=== PATIENT | male | born 1995 | race Caucasian/White ===

== ENCOUNTER 2023-12-28 16:42 | Emergency (ER) | payer OTHER, SELFPAY ==
--- NOTE | ~2023-12-28 | CT_ITS ---
EXAMINATION: CT abdomen pelvis wo con DATE: 12/28/2023 17:36 INDICATION: Right-sided abdomen pain TECHNIQUE: Computed tomography (CT) of the abdomen and pelvis was performed without intravenous contr ast. The dose-length product was 210.67 mGy-cm. Automated exposure control and iterative reconstructi on technique were employed. COMPARISON: None. FINDINGS: Lung bases are unremarkable. Heart size normal. No significant pleural or pericardial effus ion. The liver, spleen, pancreas, adrenal glands and kidneys are unremarkable. No hydronephrosis or r enal stone. Gallbladder is present. Nonobstructive bowel pattern. Normal appendix. No abnormal pelvic masses or fluid collections. No significant vascular abnormality. No lymphadenopathy. No evidence fo r hernia. No acute osseous abnormality. IMPRESSION: 1. No acute abdominal abnormality. Reviewed, dictated and finalized at location A.
[2023-12-28 16:52] VITALS: BP 123/88; PULSE 107; RESP 18; TEMP 36.3; O2SAT 100
--- NOTE | 2023-12-28 17:11 | ED.ABDPAIN ---
HPI - Abdominal Pain General Chief Complaint: Abdominal Pain Stated Complaint: right flank pain Time Seen by Provider: 12/28/23 16:56 Source: patient Mode of arrival: ambulatory Limitations: no limitations History of Present Illness HPI narrative: Patient is a 28-year-old male, with Hx of marijuana use, who presents to the ED who presents to the ED with c/o R sided abdomen pain. Patient reports pain began last night and has been fairly constant since then. Pain worse with movement, coughing. Denies radiation of pain to back or groin. He has not tried anything for the pain. He denies any other associated symptoms. Denies nausea, vomiting, diarrhea, constipation, dysuria, hematuria, fevers. Patient has never had pain like this before. Denies previous history of kidney stones. Related Data Allergies Allergy/AdvReac Type Severity Reaction Status Date / Time No Known Allergies Allergy Verified 12/28/23 17:55 Review of Systems Review of Systems: CONSTITUTIONAL: Denies fever, chills, or sweats. GASTROINTESTINAL: See HPI. GENITOURINARY: Denies dysuria or hematuria. MUSCULOSKELETAL: Denies back pain, extremity pain, myalgia. All systems reviewed & are unremarkable except as noted in HPI and below PMFSH Social History Social History (Updated 12/28/23 @ 19:30 by Mary Alvarez PA-C) Substance use: current Substance use type: marijuana Exam Narrative: GENERAL: Well appearing, well-nourished, non-toxic, in no acute distress. HEAD: Normocephalic, atraumatic. ENT: Dental decay. Upper teeth nearly eroded down to gumline. RESPIRATORY: Airway patent, respirations nonlabored. Clear to auscultation bilaterally, no rales, rhonchi, wheezing. CARDIOVASCULAR: Regular rate and rhythm. Radial pulses easily palpable ABDOMINAL: Soft, TTP in RLQ, R mid/lateral abdomen, nondistended. Normoactive BS. +mild CVA tenderness to percussion on R side MUSCULOSKELETAL: Moves all extremities. No gross deformities. No midline thoracic or lumbar spinal tenderness. SKIN: Warm, dry, normal color. NEURO: A&O X3. Speech clear. PSYCHIATRIC: Appropriate mood and affect. Normal interaction. Course Vital Signs Vital signs: Vital Signs Temperature 97.4 F L 12/28/23 16:52 Pulse Rate 107 H 12/28/23 16:52 Respiratory Rate 18 12/28/23 16:52 Blood Pressure 123/88 12/28/23 16:52 Pulse Oximetry 100 12/28/23 16:52 Oxygen Delivery Room Air 12/28/23 16:52 Temperature 97.4 F L 12/28/23 16:52 Pulse Rate 66 12/28/23 17:45 Respiratory Rate 16 12/28/23 17:45 Blood Pressure 116/68 12/28/23 17:45 Pulse Oximetry 99 12/28/23 17:45 Oxygen Delivery Room Air 12/28/23 16:52 MDM - Abdominal Pain MDM Narrative Medical decision making narrative: Patient presented to ED with 1.5 day history of right-sided abdominal pain, worse with movement and coughing, no other associated symptoms. Vital signs are stable upon arrival. Patient afebrile, in no acute distress. Laboratory studies are unremarkable. No leukocytosis or anemia. CMP unremarkable. Stable kidney function. Normal LFTs and lipase. Urinalysis with trace leuk esterase, 6-10 WBC, though squamous cells present. Patient denies any urinary complaints at this time. Denies concern for STDs. Will send for culture. CT scan abdomen pelvis was obtained and unremarkable. Normal appendix. Normal liver and gallbladder. No ureterolithiasis. Patient updated on lab and imaging results. He is feeling better with supportive therapy. Discussed likelihood of muscular pain. Advised to continue Tylenol/ibuprofen as needed for pain, given return precautions. Patient in agreement with plan. Discharged in stable condition. Vital signs stable at time of D/C. Medical Records Attestation: I reviewed the patient's medical records. Lab Data Attestation: I reviewed the patient's lab results. 12/28/23 17:22 12/28/23 17:22 Labs: Lab Results 12/27
[2023-12-28 17:24] LABS: Appearance Urine Clear (Clear); Bacteria Urine Rare /hpf; Bilirubin Urine Negative (Negative); Blood Urine Negative (Negative); Color Urine Yellow (Yellow); Glucose Urine UA Negative (Negative); Ketones Urine Trace mg/dL (Negative); Leukocyte Esterase Ur Trace LEU/UL (Negative); Nitrate Urine Negative (Negative); Non Pathogenic Casts 0-2; Protein Urine Negative (Negative); RBC Urine 0-2 /hpf (0-2); Specific Grav Ur 1.023 (1.001-1.035); Squamous Epithelial Cell Urine Occasional /hpf (Few); pH Urine 6.5 (5.0-9.0)
[2023-12-28 17:26] LABS: Add Urine Microscopic? YES
[2023-12-28 17:29] LABS: Basophils Percent Auto 0.5 % (0.2-1.2); Eosinophils Absolute Auto 0.2 K/mm3 (0-0.3); Immature Granulocyte Absolute 0.02 K/mm3 (0.00-0.031); Immature Granulocyte Percent A 0.3 % (0-0.5); Lymphocytes Absolute Auto 2.36 K/mm3 (0.9-3.2); Lymphocytes Percent Auto 31.1 % (18.3-44.2); Mean Corpuscular HGB Conc 34.1 g/dl (32-36); Mean Corpuscular Hemoglobin 30.3 pg (26-34); Mean Corpuscular Volume 88.9 fl (80-100); Mean Platelet Volume 9.7 fl (7.4-10.4); Monocytes Absolute Auto 0.6 K/mm3 (0.1-0.6); Monocytes Percent Auto 7.8 % (2.6-8.5); Neutrophils Absolute Auto 4.4 K/mm3 (1.3-6.7); Neutrophils Percent Auto 58.3 % (45.5-73.1); Platelet Count Result 238 k/mm3 (150-375); Red Blood Count 4.95 M/mm3 (4.6-6.20); Red Cell Distribution Width 12.4 % (11.5-14.5); White Blood Count 7.6 K/mm3 (4.5-10.0)
[2023-12-28 17:43] LABS: Alanine Aminotransferase 11 U/L (6-50); Albumin Level 4.4 g/dL (3.5-5.1); Alkaline Phosphatase 65 U/L (38-126); Anion Gap 3 mmol/L (8-16); Aspartate Amino Transferase 23 U/L (17-59); Bilirubin,Total 0.7 mg/dL (0.2-1.3); Blood Urea Nitrogen 10 mg/dL (9-20); Calcium 9.3 mg/dL (8.4-10.2); Carbon Dioxide 30 mmol/L (22-30); Chloride 104 mmol/L (98-107); Estimated CRCL calculation 84 ml/min; Estimated Glomerular Filt Rate > 60; Glucose 95 mg/dL (65-110); Lipase 32 U/L (23-300); Potassium 3.9 mmol/L (3.4-5.0); Sodium 137 mmol/L (137-145)
[2023-12-28 17:45] VITALS: BP 116/68; PULSE 66; RESP 16; O2SAT 99
[2023-12-28] MEDS: ACETAMINOPHEN 500 MG TABLET 1000 MG PO (17:55)
[2023-12-28] MEDS: KETOROLAC (*BKC) 60 MG/2 ML VIAL IM (18:24)
[2023-12-28 19:30] VITALS: BP 120/72; PULSE 80; RESP 16; O2SAT 98
== END 2023-12-28 19:30 | disposition home or self-care (01) ==
PROVIDERS: Emergency Provider Physician Assistant
DX: R10.9 Unspecified abdominal pain (principal)
CPT/HCPCS: 36415; 74176; 80053; 83690; 85025; 87086; 87088; 96372; 99284; A9270; J1885

== ENCOUNTER 2024-02-08 18:23 | Emergency (ER) | payer OTHER, SELFPAY ==
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
[2024-02-08 18:25] VITALS: BP 115/74; PULSE 70; RESP 16; TEMP 37.4; O2SAT 99
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
--- NOTE | 2024-02-08 19:13 | PC.NURSE ---
Report from NIKI Aguilar.
--- NOTE | 2024-02-08 19:57 | PC.NURSE ---
In to room to leave lac repair supplies for ERP and admin tylenol. Pt not in room. Assume pt is in restroom. Will come back in 5 min.
--- NOTE | 2024-02-08 20:03 | PC.NURSE ---
Pt still not in room. Will give another 5 min.
[2024-02-08] MEDS: ACETAMINOPHEN 325 MG TABLET 650 MG PO (20:10)
[2024-02-08] MEDS: TETANUS,DIPHTHERIA,AC PERTUSSIS ADULT (0.5 ML) BOOSTRIX IM (20:51)
[2024-02-08] MEDS: LIDOCAINE HCL 1% LOCAL INJ 10 ML VIAL INFILTRATE (20:52)
[2024-02-08 20:55] VITALS: BP 138/74; PULSE 78; RESP 14; O2SAT 99
== END 2024-02-08 20:56 | disposition home or self-care (01) ==
LOC: ANHED 20:43
PROVIDERS: Emergency Provider Student in an Organized Health Care Education/Training Program
DX: S61.412A Laceration without foreign body of left hand, initial encounter (principal); S60.512A Abrasion of left hand, initial encounter; Z23 Encounter for immunization; V23.49XA Other motorcycle driver injured in collision with car, pick-up truck or van in traffic accident, initial encounter
CPT/HCPCS: 12001; 73130; 73564; 90471; 90715; 99284; A9270

== ENCOUNTER 2024-04-13 14:36 | Emergency (ER) | payer OTHER, SELFPAY ==
[2024-04-13 14:40] VITALS: BP 153/87; PULSE 98; RESP 20; TEMP 36.5; O2SAT 100
--- NOTE | 2024-04-13 15:07 | ED.GENADULT ---
HPI - General Adult General Chief complaint: Skin/Abscess/Foreign Body Stated complaint: have a mole Time Seen by Provider: 04/13/24 14:44 History of Present Illness HPI narrative: 28-year-old male presented to the emergency department for evaluation for a mole that has change size. Patient states since childhood he has had a mole both his groin but states that he recently noticed it was itching and found that it was increased in size. Patient does not have a primary care physician and was unsure of who to go to to have this evaluated. Related Data Allergies Allergy/AdvReac Type Severity Reaction Status Date / Time No Known Allergies Allergy Verified 04/13/24 14:42 Review of Systems Review of Systems: All systems reviewed & are unremarkable except as noted in HPI and below PMFSH Social History Social History (Updated 12/28/23 @ 19:30 by Mary Alvarez PA-C) Substance use: current Substance use type: marijuana Exam Narrative: APPEARANCE: Well appearing, no pain, no distress, well-nourished. HEAD: normocephalic, atraumatic. EYES: PERRLA/EOMI, conjunctivae clear. NOSE: Normal no drainage EARS:TMS clear with good light reflex. THROAT: Pharynx clear, no exudate. NECK: Supple. No adenopathy, no masses. RESPIRATORY: Airway patent, respirations nonlabored. Clear to auscultation bilaterally, no rales, rhonchi, wheezing. CARDIOVASCULAR: Regular rate and rhythm without murmurs rubs or gallops. ABDOMINAL: Soft, nontender, nondistended, normal bowel sounds MUSCULOSKELETAL: Moves all extremities. Strength/ROM intact, No edema, No calf tenderness. NEURO: Alert. Cranial nerves II through XII intact. SKIN: seborrheic keratosis above groin Course Vital Signs Vital signs: Vital Signs Temperature 97.7 F 04/13/24 14:40 Pulse Rate 98 04/13/24 14:40 Respiratory Rate 20 04/13/24 14:40 Blood Pressure 153/87 H 04/13/24 14:40 Pulse Oximetry 100 04/13/24 14:40 Oxygen Delivery Room Air 04/13/24 14:40 Temperature 97.7 F 04/13/24 14:40 Pulse Rate 84 04/13/24 15:26 Respiratory Rate 15 04/13/24 15:26 Blood Pressure 126/89 04/13/24 15:26 Pulse Oximetry 99 04/13/24 15:26 Oxygen Delivery Room Air 04/13/24 14:40 Medical Decision Making Vital Signs Vital Signs: Vital Signs Temperature 97.7 F 04/13/24 14:40 Pulse Rate 98 04/13/24 14:40 Respiratory Rate 20 04/13/24 14:40 Blood Pressure 153/87 H 04/13/24 14:40 Pulse Oximetry 100 04/13/24 14:40 Oxygen Delivery Room Air 04/13/24 14:40 Temperature 97.7 F 04/13/24 14:40 Pulse Rate 84 04/13/24 15:26 Respiratory Rate 15 04/13/24 15:26 Blood Pressure 126/89 04/13/24 15:26 Pulse Oximetry 99 04/13/24 15:26 Oxygen Delivery Room Air 04/13/24 14:40 Discharge Plan Discharge Clinical Impression: Seborrheic keratosis Patient Disposition: Home, Self-Care Condition: Stable Instructions: Antibiotic Form Additional Instructions: Have close follow-up with your primary care physician to help get set up with a microfilm duplicating unit supervisor. You can also attempt to call Dermatology. Do recommend close follow-up to have a biopsy to rule out melanoma. [facility] Address: [address] [place] [address] Follow-up/Referrals: PHYSICIAN,POLISHER NUMERAL [Primary Care Provider] - Cale Maria MD [Physician] -
[2024-04-13 15:26] VITALS: BP 126/89; PULSE 84; RESP 15; O2SAT 99
== END 2024-04-13 15:27 | disposition home or self-care (01) ==
PROVIDERS: Emergency Provider Emergency Medicine
DX: L82.1 Other seborrheic keratosis (principal)
CPT/HCPCS: 99281